=== PATIENT | male | born 1990 | race Caucasian/White ===

== ENCOUNTER 2024-06-23 10:49 | Emergency (ER) | payer MEDICARE ==
[~2024-06-23] VITALS: Ht 172.7 cm; Wt 72.3 kg
[~2024-06-23 10:49] MED LIST: HYDROCODON-ACE1 EA10 PO
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
[2024-06-23 13:00] VITALS: BP 146/98
== END 2024-06-23 13:00 | disposition home or self-care (01) ==
LOC: ED 10:49
DX: T23.6 Corrosion of second degree of wrist and hand (principal); T54.2X1D Toxic effect of corrosive acids and acid-like substances, accidental (unintentional), subsequent encounter
CPT/HCPCS: 99282